=== PATIENT | female | born 1995 | race Caucasian/White ===

== ENCOUNTER 2020-05-21 11:09 | Emergency (ER) | payer MEDICAID ==
[~2020-05-21] VITALS: Ht 177.8 cm; Wt 90.0 kg
[~2020-05-21 11:09] MED LIST: IBUP-1222 PO; OXYC-302 PO
[2020-05-21 11:11] VITALS: BP 136/78
== END 2020-05-21 12:13 | disposition home or self-care (01) ==
LOC: ED 12:12
DX: K05.219 Aggressive periodontitis, localized, unspecified severity (principal); K11.20 Sialoadenitis, unspecified; K11.5 Sialolithiasis
CPT/HCPCS: 99283